=== PATIENT | female | born 1995 | race Caucasian/White ===

== ENCOUNTER 2020-12-17 13:16 | Emergency (ER) | payer OTHER, SELFPAY ==
[2020-12-17 13:17] VITALS: BP 166/130; PULSE 84; RESP 16; TEMP 36.4; O2SAT 96; BMI 29.0
--- NOTE | 2020-12-17 14:05 | EX.ED.DYSGE1 ---
HPI <Dr. Juan Ramon Trejo DO - Last Filed: 12/17/20 14:32> History of Present Illness Chief Complaint: Hypertension Informant: patient Narrative Narrative: 25-year-old female Presents to the emergency department with hypertension. Patient states that she has had a diagnosis of hypertension's for about 10 years now. Recently primary care has referred her to nephrology out of concern for secondary hypertension. She states that she has been on multiple medications and currently she takes labetalol 300 mg twice a day. Tells me on Wednesday she had a headache and her blood pressures were around 180/130. Typically her blood pressures around 150/120. Patient has not had renal artery stenosis work-up yet. Patient states that her new primary care physician has only recently been established. She was on the call with her specialist office whom she has not seen yet and they recommended she come to emergency. She denies any chest pain. No leg swelling. PFSH <Dr. Juan Ramon Trejo DO - Last Filed: 12/17/20 14:32> PFSH Medical History (Updated 12/17/20 @ 14:22 by Amina Jones) Anxiety Hypertension Allergy/AdvReac Type Severity Reaction Status Date / Time Sulfa (Sulfonamide Allergy Rash Verified 12/17/20 13:16 Antibiotics) Surgical History (Updated 12/17/20 @ 14:29 by Amina Jones) Hx of adenoidectomy Hx of tonsillectomy no surgical history (Noncontributory) Social History (Updated 12/17/20 @ 14:[address] Juan Ramon Trejo DO) Smoking Status: Current every day smoker substance use type: does not use seatbelt use: always ROS <Dr. Juan Ramon Trejo DO - Last Filed: 12/17/20 14:32> ROS ED Constitutional Constitutional ED: Denies chills or weight loss Eyes Eyes: Denies change in vision or diplopia ENT ENT ED: Denies ear pain, rhinorrhea or sore throat Cardiovascular Cardiovascular: Denies chest pain, orthopnea, palpitations or racing heartbeat Respiratory/Chest Respiratory/Chest: Denies cough, dyspnea or orthopnea Gastrointestinal Gastrointestinal: Denies abdominal pain, diarrhea, nausea or vomiting Genitourinary Genitourinary ED: Denies dysuria, hematuria or urinary frequency Musculoskeletal Musculoskeletal: Denies arthralgias or myalgias Integumentary Denies abscess or rash Neurologic Neurologic: Reports headache(s); Denies weakness Psychiatric Psychiatric: Denies anxiety, depression, suicidal ideation or suicidal thoughts Endocrine Endocrinology: Denies polydipsia, polyphagia or polyuria Allergic/Immunologic Allergic/Immunologic ED: Denies mouth swelling, tongue swelling or urticaria EXAM <Dr. Juan Ramon Trejo, DO - Last Filed: 12/17/20 14:32> Physical Exam Const Vital Signs: 12/17/20 13:17 12/17/20 14:15 12/17/20 14:16 Temperature 97.6 F L Temperature Source Temporal Pulse Rate 84 Respiratory Rate 16 Blood Pressure 166/130 H 163/134 H 178/124 H Blood Pressure Mean 142 143 142 Pulse Ox 96 Oxygen Delivery Method Room Air 12/17/20 14:17 Temperature Temperature Source Pulse Rate Respiratory Rate Blood Pressure 190/132 H Blood Pressure Mean 151 Pulse Ox Oxygen Delivery Method Positive well nourished and well developed General Appearance ED: well developed HEENT Reports normocephalic, head/scalp atraumatic and moist mucous membranes Eyes PERRL and EOMs intact bilaterally Neck no lymphadenopathy, supple and no JVD Resp normal respiratory effort and clear to auscultation bilaterally Cardio regular rate, regular rhythm and no murmurs GI normal to inspection, nondistended, normoactive bowel sounds and non-tender Palpation: soft Back/Spine no CVA tenderness and normal ROM Extremity normal to inspection General Extremety ED: Negative for edema General Extremity: Negative for edema Neuro oriented x3 and CN's II-XII intact bilaterally Sensorium / Orientation: alert Motor Exam: strength 5/5 throughout Psych mental status grossly normal Mood & Affect: Negative for depressed or tearful Skin no rashes or lesions noted and no wounds <Dr. Ebonie Suazo, DO - Last Filed: 12/17/20 15:43> Physical Exam Const Vital Signs: 12/17/20 13:17 12/17/20 14:15 12/17/20 14:16 Temperature 97.6 F L Temperature Source Temporal Pulse Rate 84 Respiratory Rate 16 Blood Pressure 166/130 H 163/134 H 178/124 H Blood Pressure Mean 142 143 142 Pulse Ox 96 Oxygen Delivery Method Room Air 12/17/20 14:17 Temperature Temperature Source Pulse Rate Respiratory Rate Blood Pressure 190/132 H Blood Pressure Mean 151 Pulse Ox Oxygen Delivery Method MDM <Dr. Juan Ramon Trejo, DO - Last Filed: 12/17/20 14:32> [facility] Narrative Medical decision making narrative: Nursing took manual pressures. Right arm 178/124 left arm 190/132.Patient received a dose of clonidine. Its difficult at this juncture not knowing what all medicines that she is tried in the past and what work-up has been done already. The patient's most recent readings at home were at her baseline. I would agree that she needs a secondary hypertension work-up. She has this already scheduled. Lab Data Labs: Laboratory Results - last 24 hr 12/17/20 12/17/20 12/17/20 14:45 15:00 15:00 WBC 9.4 RBC 5.15 Hgb 15.3 H Hct 45.3 MCV 88.0 MCH 29.7 MCHC 33.8 RDW Std Deviation 39.8 RDW Coeff of [place] 12.4 Plt Count 274 MPV 10.0 Immature Gran % (Auto) 1.300 H Neut % (Auto) 60.7 Lymph % (Auto) 24.1 [place] % (Auto) 8.2 Eos % (Auto) 4.8 Baso % (Auto) 0.9 Absolute Neuts (auto) 5.7 Absolute Lymphs (auto) 2.27 Nucleated RBC % 0 Sodium 139 Potassium 3.6 Chloride 106 Carbon Dioxide 28.0 Anion Gap 5 BUN 10 Creatinine 0.81 Estim Creat Clear Calc 97.66 Est GFR (MDRD) Af Amer 109 Est GFR (MDRD) Non-Af 90 BUN/Creatinine Ratio 12.4 Glucose 86 Calcium 9.6 Total Bilirubin 0.30 AST 28 ALT 65 H Alkaline Phosphatase 82 Total Protein 7.8 Albumin 3.5 Globulin 4.3 H Albumin/Globulin Ratio 0.8 L Urine Color Yellow Urine Clarity Sl. Cloudy Urine pH 7.0 Ur Specific [place] 1.015 Urine Protein 15 H Urine Glucose (UA) Normal Urine Ketones Negative Urine Occult Blood Negative Urine Nitrite Negative Urine Bilirubin Negative Urine Urobilinogen Normal Ur Leukocyte Esterase 25 H Urine RBC 0 SEEN Urine WBC 0-5 SEEN Ur Squamous Epith Cells 0-5 SEEN Urine Bacteria 1+ Urine Mucus 0 SEEN <Dr. Ebonie Suazo, DO - Last Filed: 12/17/20 15:43> [facility] Narrative Medical decision making narrative: Patient signed out to me pending lab results and reevaluation. Patient has had a 10-year history of hypertension but her blood pressure has been more elevated lately. She especially has an elevated diastolic blood pressure. She is on labetalol 300 mg at home. She was referred to nephrology today and when they heard what her blood pressure is in the office recommend she come to the emergency room to be evaluated further. Patient has normal kidney function with a creatinine of 0.81 and a GFR of 90. CBC is unremarkable. She does have some protein spillage into her urine which is consistent with long-term hypertension. Patient is given 0.1 mg of clonidine. She has normal neurologic exam. Her presentation is not consistent with hypertensive emergency. Given the fact that her blood pressures managed by PCP and she is referred to nephrology I will not emergently change her medication regimen at this time. Patient is instructed to follow-up with both her PCP and nephrology for further medication management. She verbalizes agreement and understand this plan. She is discharged home in stable condition. Lab Data Attestation: I reviewed the patient's lab results. Labs: Laboratory Results - last 24 hr 12/17/20 12/17/20 12/17/20 14:45 15:00 15:00 WBC 9.4 RBC 5.15 Hgb 15.3 H Hct 45.3 MCV 88.0 MCH 29.7 MCHC 33.8 RDW Std Deviation 39.8 RDW Coeff of [place] 12.4 Plt Count 274 MPV 10.0 Immature Gran % (Auto) 1.300 H Neut % (Auto) 60.7 Lymph % (Auto) 24.1 [place] % (Auto) 8.2 Eos % (Auto) 4.8 Baso % (Auto) 0.9 Absolute Neuts (auto) 5.7 Absolute Lymphs (auto) 2.27 Nucleated RBC % 0 Sodium 139 Potassium 3.6 Chloride 106 Carbon Dioxide 28.0 Anion Gap 5 BUN 10 Creatinine 0.81 Estim Creat Clear Calc 97.66 Est GFR (MDRD) Af Amer 109 Est GFR (MDRD) Non-Af 90 BUN/Creatinine Ratio 12.4 Glucose 86 Calcium 9.6 Total Bilirubin 0.30 AST 28 ALT 65 H Alkaline Phosphatase 82 Total Protein 7.8 Albumin 3.5 Globulin 4.3 H Albumin/Globulin Ratio 0.8 L Urine Color Yellow Urine Clarity Sl. Cloudy Urine pH 7.0 Ur Specific [place] 1.015 Urine Protein 15 H Urine Glucose (UA) Normal Urine Ketones Negative Urine Occult Blood Negative Urine Nitrite Negative Urine Bilirubin Negative Urine Urobilinogen Normal Ur Leukocyte Esterase 25 H Urine RBC 0 SEEN Urine WBC 0-5 SEEN Ur Squamous Epith Cells 0-5 SEEN Urine Bacteria 1+ Urine Mucus 0 SEEN Treatment and Re-Evaluation Comments:: Clonidine PO, DC home Discharge Plan Triage Chief Complaint: Hypertension ED Provider: Ebonie Suazo Dx/Rx/DC Orders Clinical Impression: Hypertensive urgency Instructions: ED High Blood Pressure ... Primary Care Provider: Care Physician,No Primary Referrals: Care Physician,No Primary [Primary Care Provider] - Activity Restrictions/Additional Instructions: Please follow-up with your primary care doctor as well as nephrology soon as possible. Continue taking your home blood pressure medications. Keep a log of your blood pressures, 1 or 2 times a day for when you follow-up with your doctors. Disposition Disposition: Home, self care
[2020-12-17 14:15] VITALS: BP 163/134; BP 190/132
[2020-12-17 14:16] VITALS: BP 178/124
[2020-12-17 14:17] VITALS: BP 190/132
[2020-12-17] MEDS: cloNIDine HCl 0.1 MG Tablet PO (14:20)
[2020-12-17 14:57] LABS: Mucous, Urine 0 SEEN /hpf (<or=2+); Red Blood Cells-Urine 0 SEEN /hpf (0-5)
[2020-12-17 14:58] LABS: Color, Urine Yellow (Yellow); Glucose, Dipstick Normal (Normal); Ketone-Dipstick Negative (Negative); Leukocyte Esterase-Dipstick 25 /ul (Negative); Nitrite-Dipstick Negative (Negative); Occult Blood-Urine Negative /ul (Negative); Protein-Dipstick 15 mg/dl (Negative); Specific Gravity, Urine 1.015 (1.002-1.030); Urine Bilirubin Dipstick Negative (Negative); Urine Clarity Sl. Cloudy (Clear); Urine Urobilinogen Normal (Normal)
[2020-12-17 15:06] LABS: Bacteria 1+ /hpf (None Seen); Squamous Epithelial Cells - UA 0-5 SEEN /hpf (5-10); White Blood Cells 0-5 SEEN /hpf (0-5)
[2020-12-17 15:09] LABS: Absolute Lymphocyte Count 2.27 X10^3/uL (0.83-4.51); Absolute Neutrophil Count 5.7 X10^3/uL (2.0-7.7); Basophil# 0.08 X10^3/uL; Basophil% 0.9 % (0-1); Eosinophil# 0.45 X10^3/uL; Eosinophils% 4.8 % (0-5); Hematocrit 45.3 % (37-47); Hemoglobin 15.3 g/dL (12.0-15.0); Lymphocyte # 2.27 X10^3/ul (0.83-4.51); Lymphocyte % 24.1 % (19-41); Mean Corp Hgb Conc 33.8 g/dL (32-36); Mean Corpuscular Hgb 29.7 pg (27.0-32.0); Monocyte# 0.77 X10^3/uL; Monocyte% 8.2 % (0-10); NRBC Flagged by Analyzer 0 % (0-5); Neutrophil # 5.72 X10^3/uL (2.7-7.7); Neutrophil % 60.7 % (47-70); Platelet Count 274 K/mm3 (150-450); RBC Distribution Width CV 12.4 % (11.6-14.6); RBC Distribution Width SD 39.8 fl (35.1-43.9); Red Blood Count 5.15 M/mm3 (4.2-5.4); White Blood Count 9.4 K/mm3 (4.4-11.0)
[2020-12-17 15:26] LABS: ALB/GLOB Ratio 0.8 RATIO (0.9-2.4); AST(SGOT) 28 U/L (15-37); Alanine Aminotransfer ALT/SGPT 65 U/L (13-56); Albumin, Serum 3.5 g/dL (3.2-5.0); Alkaline Phosphatase 82 U/L (45-117); Anion Gap 5 (5-15); BUN 10 mg/dL (7-18); BUN/Creat Ratio 12.4 RATIO (10-20); Calcium,Total 9.6 mg/dL (8.5-10.1); Chloride 106 mmol/L (98-107); Creatinine, Serum 0.81 mg/dL (0.55-1.02); EST Glomerular Filtration Rate 90 mL/min (>60); Est Glom Filt Rate - Afr Amer 109 mL/min (>60); Estimated Creatinine Clearance 97.66 ml/min; Globulin 4.3 g/dL (2.2-4.2); Glucose 86 mg/dL (74-106); Potassium 3.6 mmol/L (3.5-5.1); Protein, Total 7.8 g/dL (6.4-8.2); Sodium Level 139 mmol/L (136-145)
[2020-12-17 15:51] LABS: Internal QC Validated? YES +Cl - CLEAR BKGD; Pregnancy, Serum, hCG Quali. NEGATIVE Negative
[2020-12-17 16:13] VITALS: BP 155/113
[2020-12-17 16:15] VITALS: BP 155/113
== END 2020-12-17 16:19 | disposition home or self-care (01) ==
PROVIDERS: Emergency Medicine; Emergency Provider Emergency Medicine
DX: I16.0 Hypertensive urgency (principal); I10 Essential (primary) hypertension; Z79.899 Other long term (current) drug therapy; F17.200 Nicotine dependence, unspecified, uncomplicated
CPT/HCPCS: 80053; 81001; 84703; 85025; 99284; A4216